=== PATIENT | male | born 1980 | race Hispanic/Latino ===

== ENCOUNTER 2024-07-24 21:40 | Emergency (ER) | payer SELFPAY ==
[~2024-07-24] VITALS: Ht 175.3 cm; Wt 93.0 kg
--- NOTE | 2024-07-24 22:17 | ERN ---
ED Note History of Present Illness Stated Complaint: C/O PAIN TO BACK AFTER FALL 3-4 FT OFF LADDER Chief Complaint: Mechanical Fall Time Seen by MD: 21:58 Dictation: This is a 44-year-old male who presented to the emergency room with complaints of fall from a ladder which was about 3-4 feet height from the ground. Was attempting to play some [employer] lights. He stated that he fell backwards from the ladder about 3rd or 4th step and since then has experienced some lower back pain for which he came into the ED for further evaluation. No history of any bladder or bowel incontinence. No leg weakness. Patient is able to ambulate without any problems. Heart rate 116 respirations 20 blood pressure 138/103 pulse oximetry 98% on room air His chronic medical problems include anxiety and depression Allergies: Coded Allergies: No Known Allergies (Unverified Allergy, Unknown, 07/24/24) Past Medical History Past Medical History: Anxiety, Depression Surgical History: None Family History: Negative Social History: Drugs, ETOH RN Note Reviewed/Agreed w/PFSH: Yes Review of System Dictation Constitutional: Negative for fever,chills, and weight loss Eyes: Negative for injury, pain,redness, and discharge ENT: Negative for injury,pain or swelling Cardiovascular: Negative for chest pain, palpitations, and edema Respiratory: Negative for shortness of breath, cough, and wheezing, Abdomen/GI: Negative for abdominal pain, nausea, vomiting, diarrhea, and constipation Back: Positive for injury and pain of lower back : Negative for injury, bleeding and discharge MS/Extremity: Negative for injury and deformity Skin: Negative for rash, and discoloration Neuro: Negative for headache, weakness, numbness, tingling, and seizure Psych: Negative for suicide ideation, homicidal ideation, and hallucinations Initial Vital Sign VS Vital Signs Date Time Temp Pulse Resp B/P (MAP) Pulse Ox O2 Delivery O2 Flow Rate FiO2 07/24/24 21:43 98.1 116 20 138/103 97 Room Air 07/24/24 22:34 0 21 Physical Exam Dictation General: awake, alert, NAD Head/Face: Normocephalic, atraumatic Eyes: PERRL, EOMI, vision at baseline ENT: oral cavity clear, TMs clear, no signs of infection Neck: Trachea midline, supple, no nuchal rigidity Cardiovascular: RRR, normal S1/S2, No MRGs, no JVD Respiratory: CTAB, no respiratory distress, No rales or wheezes Abdomen: Soft, non-tender, non-distended, normal bowel sounds, no guarding or rebound. Skin: Warm, dry, normal turgor, no rash MS/Extremity: Pulses equal, no cyanosis, neurovascular intact, FROM. No lumbar spine tenderness Neuro: COAx4, GCS 15, strength 5/5, CN 2-12 intact, normal cerebellar exam, normal gait, Psych: Normal behavior, mood, and affect normal Extremities-trace edema without any palpable cords, Homans sign is negative Results (Laboratory/Radiology) Laboratory/Radiology Laboratory Tests Test 07/24/24 21:52 Urine Opiates Screen NEGATIVE (NEGATIVE) Urine Barbiturates Screen NEGATIVE (NEGATIVE) Urine Phencyclidine Screen NEGATIVE (NEGATIVE) Urine Amphetamines Screen NEGATIVE (NEGATIVE) Urine Benzodiazepines Screen NEGATIVE (NEGATIVE) Urine Cocaine Screen NEGATIVE (NEGATIVE) Urine Marijuana (THC) Screen POSITIVE (NEGATIVE) H Labs Reviewed?: Yes X-RAY Comment: PATIENT: MELVIN REICH III MR#: [id number] : 1980 SEX: M AGE: 44 LOCATION: [facility] ORDER 02 STATUS: [facility] ER REPORT#: [id number] SERVICE 01 REASON: fall backwards from a ladder - 2-3 ft. back pain ORDERING PHYSICIAN: IBRAHIMA BARTLETT MD PROCEDURE: LUMB 2 3VW - LUMBAR SPINE 2-3VWS LUMBAR SPINE 2-3VWS HISTORY: Status post fall COMPARISON: None FINDINGS: 3 images of lumbar spine were obtained. There is straightening of normal lordotic curvature which may be related to muscle spasm or positioning. No loss of vertebral height is seen. No fracture or dislocation is seen. Degenerative changes are seen. IMPRESSION: 1. No fracture is seen. DICTATED BY: TANIYA MONTANO MD DATE: 07/24/242299 ELECTRONICALLY SIGNED BY: TANIYA MONTANO MD DATE: 07/24/242302 ED Course ED Course Orders Procedure Category Date Status Time Ketorolac PHA 07/24/24 Complete Tromethamine 30mg/Ml 22:30 Lumbar Spine 2-3vws RAD 07/24/24 Resulted 22:02 12 Lead Ekg Tracing- EKG 07/24/24 Logged Technical 22:04 Drug Screen Urine LAB 07/24/24 Complete 22:12 Current Medications Medications (Trade) Dose Ordered Sig/Tali Route PRN Reason Start Time Stop Time Status Last Admin Dose Admin Ketorolac Tromethamine (toRADol) 30 mg ONCE ONCE IM 07/24/24 22:30 07/24/24 22:31 DC 07/24/24 22:18 Vital Signs Date Time Temp Pulse Resp B/P (MAP) Pulse Ox O2 Delivery O2 Flow Rate FiO2 07/24/24 22:34 98.2 103 18 120/91 96 Room Air* 0 21 07/24/24 21:43 98.1 116 20 138/103 97 Room Air We will perform diagnostic labs, advanced imaging and administer medications according to the patient's complaint. Once the results are available, will review and personally interpreted the labs to rule out any acute life- threatening emergency the trach require immediate intervention and treatment. I will then re-evaluate the patient after treatment and diagnostic exams have return to determine whether the patient requires any further testing, can safely be discharged home or need further admission to hospital for additional treatment and evaluation. Medical Decision Making MDM MDM: Differential diagnosis: Rationale: Tests considered and ordered secondary to shared decision making include: Previous outside records reviewed: Old ER visits. Risk of complication and/or morbidity or mortality of patient management: None Medications-Per medication reconciliation Need for hospitalization: Patient does not meet criteria for hospitalization. Need for emergency major/minor surgery: No There are no social concerns with this patient. Prescription drug management Prescriptions will include symptomatic care Patient's prior external medical records from other ER visits were reviewed by me as indicated. Prior testing and results from previous visits were reviewed. Prior tests were taken into account with medical decision making and resource utilization, independent historian/historians were used to obtain complete medical history. I independently interpreted the test that were performed, results were reviewed by me and considered findings on radiology if ordered. Medical management and examination interpretation discussions were had by me with other qualified healthcare professionals as indicated for the patient's care. Problem List Problem List: (1) Back pain (2) Fall from ladder DX & DISP Disposition: Discharge Departure Impression: Primary Impression: Fall from ladder Additional Impression: Back pain Condition: Stable Scripts Ibuprofen (Ibuprofen) 800 Mg Tablet 800 MG PO Q8H PRN for PAIN, #30 TAB 0 Refills Prov: IBRAHIMA BARTLETT MD 07/24/24 Cyclobenzaprine HCl (Cyclobenzaprine HCl) 5 Mg Tablet 5 MG PO TID for back pain, #16 TAB Prov: IBRAHIMA BARTLETT MD 07/24/24 Additional Instructions: Patient and the caregiver have been informed of all the diagnostic tests and the imaging conducted during the today's visit to the emergency room and has verbalized understanding of the results I have personally reviewed and interpreted all diagnostic exams performed here in the ER today as well as the vital signs documented by the nursing staff. The patient is now being discharged to home and should follow up with the primary care physician or the specialist as directed by the ER staff. Follow-up with primary care provider in 1 to 2 days. Take medications as directed here in the emergency room. Okay to continue home medications unless otherwise discussed during your visit in the emergency room today. Return to your nearest emergency room if symptoms worsen or if there is no improvement. Call 911 if you need immediate assistance. Take Tylenol or Motrin [id number] as needed and if no contraindications are present. Increase o ral hydration. A wound culture or urine culture was ordered here in the emergency room department please follow-up with primary care provider and advise them to get repeat ports from our facility. If you had any Pawan wrap/splints that were applied here, please do not remove them until you see your primary care or specialty. IBRAHIMA BARTLETT MD Jul 24, 2024 22:17
[2024-07-24] MEDS: ketOROlac 30MG VIAL (30MG/ML) IM ONE (22:18)
[2024-07-24 22:50] LABS: AMPHET/METH SCREEN,URINE NEGATIVE (NEGATIVE); BARBITURATE SCREEN, URINE NEGATIVE (NEGATIVE); BENZODIAZEPINES SCREEN,URINE NEGATIVE (NEGATIVE); CANNABINOID SCREEN,URINE POSITIVE (NEGATIVE); COCAINE SCREEN,URINE NEGATIVE (NEGATIVE); OPIATE SCREEN,URINE NEGATIVE (NEGATIVE); PHENCYCLIDINE SCREEN,URINE NEGATIVE (NEGATIVE)
--- NOTE | 2024-07-24 23:03 | HMCIMG ---
LUMBAR SPINE 2-3VWS HISTORY: Status post fall COMPARISON: None FINDINGS: 3 images of lumbar spine were obtained. There is straightening of normal lordotic curvature which may be related to muscle spasm or positioning. No loss of vertebral height is seen. No fracture or dislocation is seen. Degenerative changes are seen. IMPRESSION: 1. No fracture is seen.
[2024-07-24] MEDS ORDERED: CYCL5TAB3 PO (23:14)
[2024-07-24] MEDS ORDERED: IBUP-2071 PO (23:14)
[2024-07-24 23:39] VITALS: BP 125/75; PULSE 99; RESP 18; TEMP 98.2; O2SAT 97
--- NOTE | 2024-07-25 06:27 | EKG ---
Formerly [facility] Test Date: 2024-07-24 Test Time: 22:01:38 Pat Name: MELVIN REICH Department: [facility] Room: Gender: M Director Of Mobile Marketing: [id number] : 1980 Requested By: IBRAHIMA BARTLETT Order Number: [id number] Reading MD: Cristopher Machado Measurements Intervals [place] Rate: 111 P: 46 [place]: 137 QRS: 61 QRSD: 95 T: 17 QT: 319 QTc: 434 Interpretive Statements Sinus tachycardia No previous ECG available for comparison Electronically Signed On 07-25-2024 19:07:44 [employer] by Cristopher Machado Please click the below link to view image of tracing.
== END 2024-07-24 23:42 | disposition home or self-care (01) ==
LOC: EDH 21:40
DX: M54.50 Low back pain, unspecified (principal); F41.9 Anxiety disorder, unspecified; F32.A Depression, unspecified; W11.XXXA Fall on and from ladder, initial encounter; Y93.89 Activity, other specified; Y92.89 Other specified places as the place of occurrence of the external cause; Y99.8 Other external cause status
CPT/HCPCS: 99285; 80305; 72100; 96372; 93005; J1885; 99284